=== PATIENT | female | born 1940 | race Caucasian/White ===

== ENCOUNTER 2017-04-01 11:40 | Emergency (ER) | payer MEDICARE ==
[~2017-04-01] VITALS: Ht 154.9 cm; Wt 69.0 kg
[~2017-04-01 11:40] MED LIST: LEVO75TA7 PO; LOSA1TAB40 PO; PRAV20TA57 PO
[2017-04-01] MEDS ORDERED: ADVIL (11:54)
[2017-04-01 14:00] VITALS: BP 179/72
[2017-04-01] MEDS ORDERED: ONDANSETRON 4MG ODT PO ONE (14:00)
[2017-04-01] MEDS ORDERED: HYDROCODONE/ACETAMINOPHEN 5/325MG TABLET PO ONE (14:00)
== END 2017-04-01 16:14 | disposition home or self-care (01) ==
LOC: ER 12:01
DX: R10.12 Left upper quadrant pain (principal); G89.29 Other chronic pain; I10 Essential (primary) hypertension; R11.0 Nausea; K86.9 Disease of pancreas, unspecified; Z90.89 Acquired absence of other organs; Z87.19 Personal history of other diseases of the digestive system
CPT/HCPCS: 99283; Q0162